=== PATIENT | female | born 1975 | race African-American/Black ===

== ENCOUNTER 2019-06-12 16:46 | Emergency (ER) | payer MEDICAID ==
[~2019-06-12] VITALS: Ht 170.2 cm; Wt 63.5 kg
--- NOTE | 2019-06-12 16:53 | NUR ---
PT BIB RA 82 FROM [facility], S/P UTERINE FIBROID EMBOLIZATION, PT HERE FOR PAIN MANAGEMENT, 01/25 ABDOMINAL.
[2019-06-12] MEDS ORDERED: ONDANSETRON 4 MG/2 ML VIAL ONE ×2 (17:00→19:41)
[2019-06-12] MEDS ORDERED: HYDROMORPHONE 1 MG/1 ML DISP.SYRIN ONE (17:00)
[2019-06-12] MEDS ORDERED: IV NORMAL SALINE 1000 ML BAG IV ONE (17:00)
[2019-06-12] MEDS ORDERED: ONDANSETRON 4 MG/2 ML VIAL IV ONE ×2 (17:00→19:45)
[2019-06-12] MEDS ORDERED: HYDROMORPHONE 1 MG/1 ML DISP.SYRIN IV ONE ×2 (17:00→19:45)
[2019-06-12 17:09] LABS: BASOPHILS % (AUTO) 0.1 % (0.0-2.0); HEMATOCRIT 41.1 % (31.2-41.9); HEMOGLOBIN 13.6 g/dL (10.9-14.3); LYMPHOCYTES # (AUTO) 0.5 K/uL (20.0-40.0); LYMPHOCYTES % (AUTO) 5.6 % (20.5-51.5); MEAN CORPUSCULAR HEMOGLOBIN 29.9 uug (24.7-32.8); MEAN CORPUSCULAR HGB CONC 33 g/dL (32.3-35.6); MEAN CORPUSCULAR VOLUME 90.6 fL (75.5-95.3); MONOCYTES # (AUTO) 0.1 K/uL (2.0-10.0); MONOCYTES % (AUTO) 1.3 % (0.0-11.0); NEUTROPHILS # (AUTO) 7.8 K/uL (1.8-8.9); PLATELET COUNT (AUTO) 276 K/uL (179-408); RED BLOOD CELL COUNT(AUTO) 4.53 MIL/uL (3.63-4.92); WHITE BLOOD COUNT (AUTO) 8.4 K/uL (3.8-11.8)
[2019-06-12 17:29] LABS: BILIRUBIN,DIRECT 0.1 mg/dL (0.0-0.2); BILIRUBIN,TOTAL 0.4 mg/dL (0.2-1.0); CREATININE 0.7 mg/dL (0.6-1.3); POTASSIUM 4.3 mmol/L (3.5-5.1); TOTAL PROTEIN, SERUM 7.7 g/dL (6.4-8.2)
--- NOTE | 2019-06-12 18:04 | NUR ---
ER MD AT BEDSIDE TALKING TO PT. MD AWARE OF VS
--- NOTE | 2019-06-12 18:18 | NUR ---
PT CLINICAL INFO PROVIDED FOR KENDRA FROM [employer] OVER THE PHONE.
[2019-06-12] MEDS ORDERED: HYDROMORPHONE 2 MG/1 ML DISP.SYRIN ONE (19:41)
--- NOTE | 2019-06-12 19:50 | NUR ---
Dr. Kuldeep Pulido MD from [place] spoke with Dr. Ortiz on phone stating they cannot accept pt. Tess technical sales manager called back and stated they will call [facility].
--- NOTE | 2019-06-12 20:13 | NUR ---
Pt resting in bed. Pt received IV dilaudid, states pain went away.
--- NOTE | 2019-06-12 20:18 | NUR ---
Dr. Ortiz spoke with Tess SONI on telephone. Pt states she would like to be d/c home and not transferred.
--- NOTE | 2019-06-12 20:29 | NUR ---
IV removed. Catheter intact and site benign. Pressure and 4x4 gauze applied to site. No bleeding noted.
--- NOTE | 2019-06-12 20:31 | NUR ---
Patient discharged to home in stable conditon. Written and verbal after care instructions given. Patient verbalizes understanding of instructions. Pt left in stable condition via wheelchair with friends who will drive pt home. Pt appears in no distress. Vital signs stable. Respirations even + unlabored.
--- NOTE | 2019-06-12 20:31 | NUR ---
Note keylaone in EDM - 06/12/19 at 3 by TPADOARIADNE IV removed. Catheter intact and site benign. Pressure and 4x4 gauze applied to site. No bleeding noted.
[2019-06-12 20:33] VITALS: BP 153/83
== END 2019-06-12 20:38 | disposition home or self-care (01) ==
LOC: ER 16:46
DX: G89.18 Other acute postprocedural pain (principal); R10.30 Lower abdominal pain, unspecified; Z88.0 Allergy status to penicillin
CPT/HCPCS: 36415; 80048; 80076; 83690; 84702; 85025; 96374; 96375; 96376; 99283; J1170 ×2; J2405 ×2; J7030